=== PATIENT | female | born 1990 | race African-American/Black ===

== ENCOUNTER 2021-05-11 18:27 | Emergency (ER) | payer SELFPAY ==
[2021-05-11 18:43] VITALS: BP 149/88; PULSE 79; RESP 16; TEMP 35.9; O2SAT 98; BMI 37.7
--- NOTE | 2021-05-11 19:10 | ED.GENADULT ---
HPI - General Adult General Chief complaint: General Medical Stated complaint: tonsil pain Time Seen by Provider: 05/11/21 19:09 Source: patient Mode of arrival: ambulatory Limitations: no limitations History of Present Illness HPI narrative: 31 y/o female who is 3 months presents to the ER with acute onset of sore throat that started today. She reports pain with eating and drinking. She denies fever, chills, N/V/D or abdominal pain. She is tired and fatigued. She has not taken anything for pain. She reports pain and swelling in the back of her throat with no known sick contacts. No vaginal bleeding and no sick contacts. MD complaint: sore throat Onset (ago): day(s) (1) Location: mouth Radiation: non-radiation Severity: severe Severity scale (1-10): 8 Quality: burning and sharp Pain Consistency: constant Relieving factors: medication Exacerbating factors: eating Associated symptoms: denies other symptoms Treatments prior to arrival: none Related Data Allergies Allergy/AdvReac Type Severity Reaction Status Date / Time Iodinated Contrast Media Allergy Itching Verified 05/11/21 18:47 [Contrast Dye] Sulfa (Sulfonamide Allergy Itching Verified 05/11/21 18:47 Antibiotics) sulfamethoxazole Allergy Itching Verified 05/11/21 18:47 [From Bactrim] trimethoprim [From Bactrim] Allergy Itching Verified 05/11/21 18:47 Review of Systems Review of Systems: Constitutional: No Fever, No Chills ENT/Mouth: + sore throat, No Rhinorrhea, + Swallowing Difficulty Eyes: No Eye Pain, No Swelling, No Redness Cardiovascular: No Chest Pain, No SOB, No Orthopnea, No Edema Respiratory: No Cough, No Sputum, No Wheezing, No dyspnea Gastrointestinal: No Nausea, No Vomiting, No Diarrhea, No abdominal Pain Genitourinary: No Dysuria, No Urinary Frequency, No Hematuria, No vaginal bleeding Musculoskeletal: No joint pain, No Myalgias Skin: No Skin Lesions, No rash Neuro: No Weakness, No Numbness, No Dizziness, + Headache Psych: No Anxiety/Panic, No Depression Heme/Lymph: No Bruising, No Lymphadenopathy PMFSH Past Medical History Attestation statement: The following information was validated with the patient. Medical History (Updated 05/11/21 @ 20:13 by ISAIAS Green) delivery delivered Social History Social History Advance Directives: No Advance Directives Information Provided: No Physical Exam Vital Signs: Vital Signs: Last Vital Signs Temp 96.6 F L 05/11/21 18:43 Pulse 79 05/11/21 18:43 Resp 16 05/11/21 18:43 BP 149/88 H 05/11/21 18:43 Pulse Ox 98 05/11/21 18:43 Body Mass Index 37.7 Appearance: Alert. Oriented X3. No acute distress. HEENT: normal external inspection of all structures, posterior oropharynx with moderate generalized erythema, uvula erythematous with slight edema, no tonsillar swelling or exudates, normal voice. neck is supple without LAD CVS: Normal heart rate and rhythm. Pulses normal. Respiratory: No respiratory distress. Skin: Skin warm and dry. Normal skin color. Normal skin turgor. No rashes. Extremities: seymour LE edema, atraumatic Neuro: Oriented X 3. No motor deficit. No sensory deficit. Course Course Course Narrative: 31 y/o female presenting with sore throat that started today. Strep test is pending. [facility] 138 Reevaluation(s) Reevaluation #1: Strep negative. Likely viral pharyngitis. Discussed symptomatic management and need for follow up with her [employer]. Medical Decision Making Lab Data Labs: Lab Results 05/11/21 Range/Units 18:51 S. pyogenes GrpA JOAQUÍN Negative (Negative) Critical Care Time Critical Care Time Critical Care Time: No Discharge Plan Discharge Clinical Impression: Pharyngitis Qualifiers: Pharyngitis/tonsillitis etiology: unspecified etiology Qualified Code(s): J02.9 - Acute pharyngitis, unspecified Patient Disposition: Home, Self-Care Instructions: Pharyngitis (ED) Additional Instructions: Your Streptest was negative today. Recommend Tylenol 975 mg every 6 hours as needed for pain/discomfort. Use warm salt water gargles several times per day. Recommend Cepacol lozenges to help with throat pain. Rest and stay hydrated, drink plenty of water. Stand Alone Forms: Work/School Release
[2021-05-11 19:11] LABS: IDNOW Serial# 9DD0AD1C; Strep A Nucleic Acid Negative (Negative)
== END 2021-05-11 21:05 | disposition home or self-care (01) ==
PROVIDERS: Emergency Provider Internal Medicine
DX: O99.519 Diseases of the respiratory system complicating pregnancy, unspecified trimester (principal); J02.9 Acute pharyngitis, unspecified; Z3A.00 Weeks of gestation of pregnancy not specified
CPT/HCPCS: 36415; 87651; 99283